=== PATIENT | male | born 1955 | race Caucasian/White ===

== ENCOUNTER 2017-09-18 09:32 | Outpatient (CLI) | payer OTHER ==
--- NOTE | 2017-09-18 12:12 | CT ---
CT BRAIN NONCONTRAST: HISTORY: 61-year-old male with TIA symptoms, with episode of dysarthria, and now difficulty walking. FINDINGS: There is no midline shift or any other mass effect. There is no evidence of acute intracranial hemor rhage, large cortical infarct, obstructive hydrocephalus, or extraaxial fluid collection. The calvar ium is intact. There is a 0.8 x 0.4 cm old lacunar infarction in the anterior portion of the right th alamus. On one image slice, the right flocculus of the cerebellum appears asymmetrically dense. This is probably artifactual. The sphenoid and ethmoid air cells, and the bilateral tympanomastoid cavitie s, are grossly clear. The cerebellar tonsils, especially the left, protrude inferior to the foramen m agnum. IMPRESSION: 1. No acute intracranial findings. 2. Tiny old lacunar infarction in the right thalamus. 3. 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 paulette POS: [facility]
== END 2017-09-18 09:33 | disposition home or self-care (01) ==
LOC: MADCT 09:32
PROVIDERS: ATTEND Family Medicine
DX: G45.9 Transient cerebral ischemic attack, unspecified (principal); G46.7 Other lacunar syndromes
CPT/HCPCS: 70450

== ENCOUNTER 2017-12-10 11:21 | Outpatient (CLI) | payer OTHER ==
--- NOTE | 2017-12-10 12:35 | RAD ---
CHEST TWO VIEWS: HISTORY: Dyspnea. Asthma. COMPARISON: None. FINDINGS: The cardiac silhouette and pulmonary vasculature are unremarkable. The mediastinum is midline. The lungs are hyperinflated. There is no confluent air space consolidation, pneumothorax, or pleural flu id apparent. Degenerative changes of the thoracic spine. IMPRESSION: Chronic obstructive pulmonary disease. POS: [facility]
== END 2017-12-10 11:22 | disposition home or self-care (01) ==
LOC: MADRAD 11:21
PROVIDERS: ATTEND Nurse Practitioner Family
DX: J45.909 Unspecified asthma, uncomplicated (principal); F17.200 Nicotine dependence, unspecified, uncomplicated; J44.9 Chronic obstructive pulmonary disease, unspecified
CPT/HCPCS: 71046

== ENCOUNTER 2020-02-29 21:20 | Emergency (ER) | payer OTHER ==
[2020-02-29] MEDS ORDERED: HYDROcodone/Acetaminophen 5/325 mg Tablet ONE (22:21)
--- NOTE | 2020-02-29 22:38 | RAD ---
XR Foot Rt 3 View STANDARD INDICATION: Foot fracture; middle pole fell on foot COMPARISON: None. FINDINGS: Bones: There is a comminuted mid shaft fracture of the right third digit metatarsal shaft. The distal fracture fragment is displaced laterally one half shaft width. No additional acute fractures evident. Joints: There is mild scattered forefoot and midfoot osteoarthrosis. Enthesopathic changes seen off t he base of the fifth metatarsal and posterior calcaneus. Lisfranc alignment: Lisfranc alignment appears within normal limits. Soft tissues: There is soft tissue swelling surrounding the forefoot. IMPRESSION: Mildly displaced third digit metatarsal shaft fracture.
== END 2020-02-29 22:25 | disposition home or self-care (01) ==
LOC: MADERS 21:20
DX: S92.331A Displaced fracture of third metatarsal bone, right foot, initial encounter for closed fracture (principal); I10 Essential (primary) hypertension; F17.210 Nicotine dependence, cigarettes, uncomplicated; Z79.82 Long term (current) use of aspirin; W22.8XXA Striking against or struck by other objects, initial encounter